=== PATIENT | male | born 1985 | race Caucasian/White ===

== ENCOUNTER 2019-01-10 06:36 | Emergency (ER) | payer BC, OTHER ==
[2019-01-10] MEDS ORDERED: Aspirin 81 MG Tab.Chew PO ONE (07:03)
[2019-01-10] MEDS ORDERED: Sodium Chloride 0.9% 10 ML Syringe FLUSH PRN (07:04)
--- NOTE | 2019-01-10 07:08 | EDM.PDOC ---
<Negro Graff M - Last Filed: 01/10/19 07:02> ED HPI GENERAL MEDICAL PROBLEM - General Chief Complaint: Chest Pain Stated Complaint: chest pain Time Seen by Provider: 01/10/19 06:52 Source of Information: Reports: Patient History Limitations: Reports: No Limitations - History of Present Illness INITIAL COMMENTS - FREE TEXT/NARRATIVE: Patient reports left sided chest pain that goes into the arm. This awoke him at 5 am. He did have some nausea and vomiting. He denies current nausea. 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 He does state the pain is somewhat worse on respiration. States he left work on with chills. Did not take temperature so he is not sure if he was febrile. He denies daily medication use, no allergies. Smokes 1/2 pack per day since 16 yrs of age. Denies headache, shortness of breath. Denies current nausea. No swelling of extremities. Denies other medical history. Onset: Today, Sudden Onset Date: 01/10/19 Onset Time: 05:00 Duration: Improving Location: Reports: Chest, Upper Extremity, Left Quality: Reports: Ache Severity: Moderate Improves with: Reports: None Worsens with: Reports: Breathing Associated Symptoms: Reports: Chest Pain, Diaphoresis, Nausea/Vomiting Left Chest Pain Score (Numeric/FACES): 5 - Related Data Allergies Allergy/AdvReac Type Severity Reaction Status Date / Time No Known Allergies Allergy Verified 01/10/19 06:54 Home Meds: Home Meds . [No Known Home Meds] 01/10/19 [History] Past Medical History Cardiovascular History: Reports: Other (See Below) Other Cardiovascular History: myocarditis Social & Family History - Tobacco Use Smoking Status *Q: Current Every Day Smoker Years of Tobacco use: 15 Packs/Tins Daily: 0.5 ED ROS GENERAL - Review of Systems Review Of Systems: See Below Constitutional: Reports: No Symptoms HEENT: Reports: No Symptoms Respiratory: Reports: No Symptoms Cardiovascular: Reports: Chest Pain Endocrine: Reports: No Symptoms GI/Abdominal: Reports: No Symptoms : Reports: No Symptoms Musculoskeletal: Reports: Arm Pain Skin: Reports: No Symptoms Neurological: Reports: No Symptoms Psychiatric: Reports: No Symptoms Hematologic/Lymphatic: Reports: No Symptoms Immunologic: Reports: No Symptoms ED EXAM, GENERAL - Physical Exam Exam: See Below Exam Limited By: No Limitations General Appearance: Alert, WD/WN, No Apparent Distress Eye Exam: Bilateral Eye: EOMI, Normal Inspection, PERRL Ears: Normal TMs Nose: Normal Inspection, Normal Mucosa, No Blood Throat/Mouth: Normal Inspection, Normal Lips, Normal Teeth, Normal Gums, Normal Oropharynx, Normal Voice, No Airway Compromise Head: Atraumatic, Normocephalic Neck: Normal Inspection, Supple, Non-Tender, Full Range of Motion Respiratory/Chest: No Respiratory Distress, Lungs Clear, Normal Breath Sounds, No Accessory Muscle Use, Chest Non-Tender Cardiovascular: Normal Peripheral Pulses, Regular Rate, Rhythm, No Edema, No Gallop, No JVD, No Murmur, No Rub Peripheral Pulses: 2+: Posterior Tibial (L), Posterior Tibial (R), Dorsalis Pedis (L), Dorsalis Pedis (R) GI/Abdominal: Normal Bowel Sounds, Soft, Non-Tender, No Organomegaly, No Distention, No Abnormal Bruit, No Mass Back Exam: Normal Inspection, Full Range of Motion, NT Extremities: Normal Inspection, Normal Range of Motion, Non-Tender, Normal Capillary Refill, No Pedal Edema Neurological: Alert, Oriented, CN II-XII Intact, Normal Cognition, Normal Gait, Normal Reflexes, No Motor/Sensory Deficits Psychiatric: Normal Affect, Normal Mood Skin Exam: Warm, Dry, Intact, Normal Color, No Rash Lymphatic: No Adenopathy Course - Vital Signs Last Recorded V/S: Last Vital Signs Temp 35.8 C 01/10/19 07:35 Pulse 63 01/10/19 07:35 Resp 11 L 01/10/19 07:35 BP 103/65 01/10/19 07:51 Pulse Ox 98 01/10/19 07:35 - Orders/Labs/Meds Orders: Active Orders 24 hr Category Date Time Status EKG Documentation Completion [RC] STAT Care 01/10/19 06:53 Active CULTURE BLOOD [BC] Stat Lab 01/10/19 07:19 Ordered CULTURE BLOOD [BC] Stat Lab 01/10/19 07:19 Ordered PTT,PARTIAL THROMBOPLSTIN TIME [COAG] Q6H Lab 01/11/19 02:00 Ordered PTT,PARTIAL THROMBOPLSTIN TIME [COAG] Q6H Lab 01/11/19 08:00 Ordered PTT,PARTIAL THROMBOPLSTIN TIME [COAG] Q6H Lab 01/11/19 14:00 Ordered PTT,PARTIAL THROMBOPLSTIN TIME [COAG] Q6H Lab 01/11/19 20:00 Ordered PTT,PARTIAL THROMBOPLSTIN TIME [COAG] Routine Lab 01/10/19 07:55 Ordered UA W/O MICROSCOPIC [URIN] Stat Lab 01/10/19 07:55 Ordered Heparin Sodium/0.45% NaCl [Heparin 25,000 Units in 1/2 Med 01/10/19 08:00 Ordered NS 500 ML] 25,000 units in 500 ml IV TITRATE Nitroglycerin [Nitrostat] Med 01/10/19 07:34 Ordered 0.4 mg SL Q5M PRN Sodium Chloride 0.9% @ 150 MLS/HR (1000ml) Med 01/10/19 08:00 Ordered Sodium Chloride 0.9% [Normal Saline] 1,000 ml IV ASDIRECTED Sodium Chloride 0.9% [Saline Flush] Med 01/10/19 07:04 Active 10 ml FLUSH ASDIRECTED PRN Blood Culture x2 Reflex Set [OM.PC] Stat Oth 01/10/19 07:19 Ordered Saline Lock Insert [OM.PC] Routine Oth 01/10/19 07:04 Ordered Medication Orders Sodium Chloride (Normal Saline) 1,000 mls @ 150 mls/hr IV ASDIRECTED OSCAR Last Admin: 01/10/19 08:09 Dose: 150 mls/hr Heparin Sodium/Sodium Chloride (Heparin 25,000 Units In 1/2 Ns 500 Ml) 25,000 units in 500 mls @ 20 mls/hr IV TITRATE OSCAR; Protocol Last Admin: 01/10/19 08:09 Dose: 1,000 units/hr, 20 mls/hr Nitroglycerin (Nitrostat) 0.4 mg SL Q5M PRN PRN Reason: Chest Pain Last Admin: 01/10/19 07:35 Dose: 0.4 mg Sodium Chloride (Saline Flush) 10 ml FLUSH ASDIRECTED PRN PRN Reason: Keep Vein Open Labs: Laboratory Tests 01/10/19 01/10/19 01/10/19 Range/Units 06:56 06:56 06:56 WBC 7.3 (4.0-10.0) x10^3/uL RBC 4.22 L (4.5-6.0) x10^6/uL Hgb 13.2 L (14.0-18.0) g/dL Hct 38.0 L (40.0-52.0) % MCV 90.0 (78.0-93.0) fL MCH 31.3 (26.0-32.0) pg MCHC 34.7 (32.0-36.0) g/dL RDW Coeff of Yumiko 12.4 (10.0-15.0) % Plt Count 171 (130-400) x10^3/uL Neut % (Auto) 50.8 (50.0-80.0) % Lymph % (Auto) 34.2 (25.0-50.0) % [place] % (Auto) 10.2 (2.0-11.0) % Eos % (Auto) 4.5 H (0.0-4.0) % Baso % (Auto) 0.3 (0.2-1.2) % PT 11.1 (10.0-12.8) SEC INR 1.0 L (2.0-3.5) Sodium 141 (136-145) mmol/L Potassium 3.8 (3.5-5.1) mmol/L Chloride 105 (98-107) mmol/L Carbon Dioxide 25 (21-32) mmol/L Anion Gap 14.8 (10-20) mmol/L BUN 19 H (7-18) mg/dL Creatinine 1.0 (0.70-1.30) mg/dL Est Cr Clr Drug Dosing TNP Estimated GFR (MDRD) > 60 Glucose 130 H (74-106) mg/dL Lactic Acid (0.4-2.0) mmol/L Calcium 8.5 (8.5-10.1) mg/dL Corrected Calcium 8.58 (8.5-10.1) mg/dL Magnesium 2.0 (1.8-2.4) mg/dL Total Bilirubin 0.3 (0.2-1.0) mg/dL AST 27 (15-37) U/L ALT 33 (16-63) U/L Alkaline Phosphatase 76 (46-116) U/L Creatine Kinase 273 (39-308) U/L POC Troponin I (0.00-0.08) ng/mL C-Reactive Protein 1.1 H (<=0.9) mg/dL Total Protein 7.9 (6.4-8.2) g/dL Albumin 3.9 (3.4-5.0) g/dL Globulin 4.0 Albumin/Globulin Ratio 0.98 TSH, Ultra Sensitive 1.144 (0.358-3.74) uIU/mL POC Result Comm 01/10/19 01/10/19 Range/Units 06:56 06:58 WBC (4.0-10.0) x10^3/uL RBC (4.5-6.0) x10^6/uL Hgb (14.0-18.0) g/dL Hct (40.0-52.0) % MCV (78.0-93.0) fL MCH (26.0-32.0) pg MCHC (32.0-36.0) g/dL RDW Coeff of Yumiko (10.0-15.0) % Plt Count (130-400) x10^3/uL Neut % (Auto) (50.0-80.0) % Lymph % (Auto) (25.0-50.0) % [place] % (Auto) (2.0-11.0) % Eos % (Auto) (0.0-4.0) % Baso % (Auto) (0.2-1.2) % PT (10.0-12.8) SEC INR (2.0-3.5) Sodium (136-145) mmol/L Potassium (3.5-5.1) mmol/L Chloride (98-107) mmol/L Carbon Dioxide (21-32) mmol/L Anion Gap (10-20) mmol/L BUN (7-18) mg/dL Creatinine (0.70-1.30) mg/dL Est Cr Clr Drug Dosing Estimated GFR (MDRD) Glucose (74-106) mg/dL Lactic Acid 0.7 (0.4-2.0) mmol/L Calcium (8.5-10.1) mg/dL Corrected Calcium (8.5-10.1) mg/dL Magnesium (1.8-2.4) mg/dL Total Bilirubin (0.2-1.0) mg/dL AST (15-37) U/L ALT (16-63) U/L Alkaline Phosphatase (46-116) U/L Creatine Kinase (39-308) U/L POC Troponin I 1.61 H* (0.00-0.08) ng/mL C-Reactive Protein (<=0.9) mg/dL Total Protein (6.4-8.2) g/dL Albumin (3.4-5.0) g/dL Globulin Albumin/Globulin Ratio TSH, Ultra Sensitive (0.358-3.74) uIU/mL POC Result Comm Called critical res Meds: Medications Generic Name Dose Route Start Last Admin Trade Name Fremargot PRN Reason Stop Dose Admin Sodium Chloride 1,000 mls @ 150 mls/hr 01/10/19 08:00 01/10/19 08:09 Normal Saline IV 150 mls/hr ASDIRECTED OSCAR Administration Heparin Sodium/Sodium Chloride 25,000 units in 500 mls @ 20 mls/hr 01/10/19 08 :00 01/10/19 08:09 Heparin 25,000 Units In 1/2 Ns 500 Ml IV 1,000 units/hr TITRATE OSCAR 20 mls/hr Administration Protocol 1,000 UNITS/HR Nitroglycerin 0.4 mg 01/10/19 07:34 01/10/19 07:51 Nitrostat SL 0.4 mg Q5M PRN Administration Chest Pain Sodium Chloride 10 ml 01/10/19 07:04 Saline Flush FLUSH ASDIRECTED PRN Keep Vein Open Discontinued Medications Generic Name Dose Route Start Last Admin Trade Name Gunjan PRN Reason Stop Dose Admin Aspirin 324 mg 01/10/19 07:03 01/10/19 07:05 Aspirin PO 01/10/19 07:04 324 mg ONETIME ONE Administration Heparin Sodium (Porcine) 4,000 units 01/10/19 07:54 01/10/19 08:08 Heparin Sodium IVPUSH 01/10/19 07:55 4,000 units .BOLUS ONE Administration Ticagrelor 180 mg 01/10/19 07:57 01/10/19 08:19 Brilinta PO 01/10/19 07:58 180 mg ONETIME ONE Administration Departure - Departure Disposition: DC/Tfer to [facility] 02 Clinical Impression: Acute coronary syndrome Instructions: Acute Coronary Syndrome Forms: Interfacility Transfer EMTALA, ED Department Discharge - My Orders Last 24 Hours: My Active Orders 01/10/19 07:34 Nitroglycerin [Nitrostat] 0.4 mg SL Q5M PRN 01/10/19 07:55 PTT,PARTIAL THROMBOPLSTIN TIME [COAG] Routine UA W/O MICROSCOPIC [URIN] Stat 01/10/19 08:00 Heparin Sodium/0.45% NaCl [Heparin 25,000 Units in 1/2 NS 500 ML] 25,000 units in 500 ml IV TITRATE Sodium Chloride 0.9% @ 150 MLS/HR (1000ml) Sodium Chloride 0.9% [Normal Saline] 1,000 ml IV ASDIRECTED 01/11/19 02:00 PTT,PARTIAL THROMBOPLSTIN TIME [COAG] Q6H 01/11/19 08:00 PTT,PARTIAL THROMBOPLSTIN TIME [COAG] Q6H 01/11/19 14:00 PTT,PARTIAL THROMBOPLSTIN TIME [COAG] Q6H 01/11/19 20:00 PTT,PARTIAL THROMBOPLSTIN TIME [COAG] Q6H - Assessment/Plan Last 24 Hours: My Active Orders 01/10/19 07:34 Nitroglycerin [Nitrostat] 0.4 mg SL Q5M PRN 01/10/19 07:55 PTT,PARTIAL THROMBOPLSTIN TIME [COAG] Routine UA W/O MICROSCOPIC [URIN] Stat 01/10/19 08:00 Heparin Sodium/0.45% NaCl [Heparin 25,000 Units in 1/2 NS 500 ML] 25,000 units in 500 ml IV TITRATE Sodium Chloride 0.9% @ 150 MLS/HR (1000ml) Sodium Chloride 0.9% [Normal Saline] 1,000 ml IV ASDIRECTED 01/11/19 02:00 PTT,PARTIAL THROMBOPLSTIN TIME [COAG] Q6H 01/11/19 08:00 PTT,PARTIAL THROMBOPLSTIN TIME [COAG] Q6H 01/11/19 14:00 PTT,PARTIAL THROMBOPLSTIN TIME [COAG] Q6H 01/11/19 20:00 PTT,PARTIAL THROMBOPLSTIN TIME [COAG] Q6H <Hafsa Jin - Last Filed: 01/10/19 08:31> ED HPI GENERAL MEDICAL PROBLEM - General Source of Information: Reports: Patient History Limitations: Reports: No Limitations - History of Present Illness INITIAL COMMENTS - FREE TEXT/NARRATIVE: Assumed care of the patient from Negro Green, ASSOCIATE PROFESSOR. Labs pending. Past Medical History Cardiovascular History: Reports: Other (See Below) ED ROS GENERAL - Review of Systems Review Of Systems: See Below Constitutional: Reports: No Symptoms HEENT: Reports: No Symptoms Respiratory: Reports: No Symptoms Cardiovascular: Reports: Chest Pain Endocrine: Reports: No Symptoms GI/Abdominal: Reports: No Symptoms : Reports: No Symptoms Musculoskeletal: Reports: Arm Pain Skin: Reports: No Symptoms Neurological: Reports: No Symptoms Psychiatric: Reports: No Symptoms Hematologic/Lymphatic: Reports: No Symptoms Immunologic: Reports: No Symptoms ED EXAM, GENERAL - Physical Exam Exam: See Below Exam Limited By: No Limitations General Appearance: Alert, WD/WN, No Apparent Distress Ears: Normal TMs Nose: Normal Inspection, Normal Mucosa, No Blood Throat/Mouth: Normal Inspection, Normal Lips, Normal Teeth, Normal Gums, Normal Oropharynx, Normal Voice, No Airway Compromise Head: Atraumatic, Normocephalic Neck: Normal Inspection, Supple, Non-Tender, Full Range of Motion Respiratory/Chest: No Respiratory Distress, Lungs Clear, Normal Breath Sounds, No Accessory Muscle Use, Chest Non-Tender Cardiovascular: Normal Peripheral Pulses, Regular Rate, Rhythm, No Edema, No Gallop, No JVD, No Murmur, No Rub GI/Abdominal: Normal Bowel Sounds, Soft, Non-Tender, No Organomegaly, No Distention, No Abnormal Bruit, No Mass Back Exam: Normal Inspection, Full Range of Motion Extremities: Normal Inspection, Normal Range of Motion, Non-Tender, No Pedal Edema, Normal Capillary Refill Neurological: Alert, Oriented, CN II-XII Intact, Normal Cognition, Normal Gait, Normal Reflexes, No Motor/Sensory Deficits Psychiatric: Normal Affect, Normal Mood Skin Exam: Warm, Dry, Intact, Normal Color, No Rash Lymphatic: No Adenopathy EKG INTERPRETATION EKG Date: 01/10/19 Course - Vital Signs Text/Narrative:: 0715 Assumed care of patient, report received from Negro Graff CNP. Patient reassessed by this ASSOCIATE PROFESSOR. Patient reporting 2/10 chest pain. EKG reviewed and noted ST elevation in V4 and V5. Nitro ordered. 0735 Labs reviewed. Note Troponin=1.61. [place] contacted in [place] and case presented. 0750 Director Dance, Dr Mead returned call to ER. Will start Heparin gtt and Brilinta 180mg po and transport patient. Still having 1-2/10 left sided chest pain. Will given Morphine 2 mg for the pain. Awaiting accepting Hospitalist. 08 [facility] returned call and Dr Arellano-Hospitalist given patient report. 08 Patient to be admitted to [id number]. Patient remained stable until leaving with ALS ground crew for [place]. - Orders/Labs/Meds Labs: Laboratory Tests 01/10/19 01/10/19 01/10/19 Range/Units 06:56 06:56 06:56 WBC 7.3 (4.0-10.0) x10^3/uL RBC 4.22 L (4.5-6.0) x10^6/uL Hgb 13.2 L (14.0-18.0) g/dL Hct 38.0 L (40.0-52.0) % MCV 90.0 (78.0-93.0) fL MCH 31.3 (26.0-32.0) pg MCHC 34.7 (32.0-36.0) g/dL RDW Coeff of Yumiko 12.4 (10.0-15.0) % Plt Count 171 (130-400) x10^3/uL Neut % (Auto) 50.8 (50.0-80.0) % Lymph % (Auto) 34.2 (25.0-50.0) % [place] % (Auto) 10.2 (2.0-11.0) % Eos % (Auto) 4.5 H (0.0-4.0) % Baso % (Auto) 0.3 (0.2-1.2) % PT 11.1 (10.0-12.8) SEC INR 1.0 L (2.0-3.5) Sodium 141 (136-145) mmol/L Potassium 3.8 (3.5-5.1) mmol/L Chloride 105 (98-107) mmol/L Carbon Dioxide 25 (21-32) mmol/L Anion Gap 14.8 (10-20) mmol/L BUN 19 H (7-18) mg/dL Creatinine 1.0 (0.70-1.30) mg/dL Est Cr Clr Drug Dosing TNP Estimated GFR (MDRD) > 60 Glucose 130 H (74-106) mg/dL Lactic Acid (0.4-2.0) mmol/L Calcium 8.5 (8.5-10.1) mg/dL Corrected Calcium 8.58 (8.5-10.1) mg/dL Magnesium 2.0 (1.8-2.4) mg/dL Total Bilirubin 0.3 (0.2-1.0) mg/dL AST 27 (15-37) U/L ALT 33 (16-63) U/L Alkaline Phosphatase 76 (46-116) U/L Creatine Kinase 273 (39-308) U/L POC Troponin I (0.00-0.08) ng/mL C-Reactive Protein 1.1 H (<=0.9) mg/dL Total Protein 7.9 (6.4-8.2) g/dL Albumin 3.9 (3.4-5.0) g/dL Globulin 4.0 Albumin/Globulin Ratio 0.98 TSH, Ultra Sensitive 1.144 (0.358-3.74) uIU/mL POC Result Comm 01/10/19 01/10/19 Range/Units 06:56 06:58 WBC (4.0-10.0) x10^3/uL RBC (4.5-6.0) x10^6/uL Hgb (14.0-18.0) g/dL Hct (40.0-52.0) % MCV (78.0-93.0) fL MCH (26.0-32.0) pg MCHC (32.0-36.0) g/dL RDW Coeff of Yumiko (10.0-15.0) % Plt Count (130-400) x10^3/uL Neut % (Auto) (50.0-80.0) % Lymph % (Auto) (25.0-50.0) % [place] % (Auto) (2.0-11.0) % Eos % (Auto) (0.0-4.0) % Baso % (Auto) (0.2-1.2) % PT (10.0-12.8) SEC INR (2.0-3.5) Sodium (136-145) mmol/L Potassium (3.5-5.1) mmol/L Chloride (98-107) mmol/L Carbon Dioxide (21-32) mmol/L Anion Gap (10-20) mmol/L BUN (7-18) mg/dL Creatinine (0.70-1.30) mg/dL Est Cr Clr Drug Dosing Estimated GFR (MDRD) Glucose (74-106) mg/dL Lactic Acid 0.7 (0.4-2.0) mmol/L Calcium (8.5-10.1) mg/dL Corrected Calcium (8.5-10.1) mg/dL Magnesium (1.8-2.4) mg/dL Total Bilirubin (0.2-1.0) mg/dL AST (15-37) U/L ALT (16-63) U/L Alkaline Phosphatase (46-116) U/L Creatine Kinase (39-308) U/L POC Troponin I 1.61 H* (0.00-0.08) ng/mL C-Reactive Protein (<=0.9) mg/dL Total Protein (6.4-8.2) g/dL Albumin (3.4-5.0) g/dL Globulin Albumin/Globulin Ratio TSH, Ultra Sensitive (0.358-3.74) uIU/mL POC Result Comm Called critical res Laboratory Results - last 24 hr 01/10/19 01/10/19 01/10/19 Range/Units 06:56 06:56 06:56 WBC 7.3 (4.0-10.0) x10^3/uL RBC 4.22 L (4.5-6.0) x10^6/uL Hgb 13.2 L (14.0-18.0) g/dL Hct 38.0 L (40.0-52.0) % MCV 90.0 (78.0-93.0) fL MCH 31.3 (26.0-32.0) pg MCHC 34.7 (32.0-36.0) g/dL RDW Coeff of Yumiko 12.4 (10.0-15.0) % Plt Count 171 (130-400) x10^3/uL Neut % (Auto) 50.8 (50.0-80.0) % Lymph % (Auto) 34.2 (25.0-50.0) % [place] % (Auto) 10.2 (2.0-11.0) % Eos % (Auto) 4.5 H (0.0-4.0) % Baso % (Auto) 0.3 (0.2-1.2) % PT 11.1 (10.0-12.8) SEC INR 1.0 L (2.0-3.5) Sodium 141 (136-145) mmol/L Potassium 3.8 (3.5-5.1) mmol/L Chloride 105 (98-107) mmol/L Carbon Dioxide 25 (21-32) mmol/L Anion Gap 14.8 (10-20) mmol/L BUN 19 H (7-18) mg/dL Creatinine 1.0 (0.70-1.30) mg/dL Est Cr Clr Drug Dosing TNP Estimated GFR (MDRD) > 60 Glucose 130 H (74-106) mg/dL Lactic Acid (0.4-2.0) mmol/L Calcium 8.5 (8.5-10.1) mg/dL Corrected Calcium 8.58 (8.5-10.1) mg/dL Magnesium 2.0 (1.8-2.4) mg/dL Total Bilirubin 0.3 (0.2-1.0) mg/dL AST 27 (15-37) U/L ALT 33 (16-63) U/L Alkaline Phosphatase 76 (46-116) U/L Creatine Kinase 273 (39-308) U/L POC Troponin I (0.00-0.08) ng/mL C-Reactive Protein 1.1 H (<=0.9) mg/dL Total Protein 7.9 (6.4-8.2) g/dL Albumin 3.9 (3.4-5.0) g/dL Globulin 4.0 Albumin/Globulin Ratio 0.98 TSH, Ultra Sensitive 1.144 (0.358-3.74) uIU/mL POC Result Comm 01/10/19 01/10/19 Range/Units 06:56 06:58 WBC (4.0-10.0) x10^3/uL RBC (4.5-6.0) x10^6/uL Hgb (14.0-18.0) g/dL Hct (40.0-52.0) % MCV (78.0-93.0) fL MCH (26.0-32.0) pg MCHC (32.0-36.0) g/dL RDW Coeff of Yumiko (10.0-15.0) % Plt Count (130-400) x10^3/uL Neut % (Auto) (50.0-80.0) % Lymph % (Auto) (25.0-50.0) % [place] % (Auto) (2.0-11.0) % Eos % (Auto) (0.0-4.0) % Baso % (Auto) (0.2-1.2) % PT (10.0-12.8) SEC INR (2.0-3.5) Sodium (136-145) mmol/L Potassium (3.5-5.1) mmol/L Chloride (98-107) mmol/L Carbon Dioxide (21-32) mmol/L Anion Gap (10-20) mmol/L BUN (7-18) mg/dL Creatinine (0.70-1.30) mg/dL Est Cr Clr Drug Dosing Estimated GFR (MDRD) Glucose (74-106) mg/dL Lactic Acid 0.7 (0.4-2.0) mmol/L Calcium (8.5-10.1) mg/dL Corrected Calcium (8.5-10.1) mg/dL Magnesium (1.8-2.4) mg/dL Total Bilirubin (0.2-1.0) mg/dL AST (15-37) U/L ALT (16-63) U/L Alkaline Phosphatase (46-116) U/L Creatine Kinase (39-308) U/L POC Troponin I 1.61 H* (0.00-0.08) ng/mL C-Reactive Protein (<=0.9) mg/dL Total Protein (6.4-8.2) g/dL Albumin (3.4-5.0) g/dL Globulin Albumin/Globulin Ratio TSH, Ultra Sensitive (0.358-3.74) uIU/mL POC Result Comm Called critical res Departure - Departure Time of Disposition: 08:10 Reason for Transfer *Q: Primary PCI Indicated Condition: Good - Assessment/Plan Admission H&P: Please use this note as an admission H&P Assessment:: 1)Acute Coronary Syndrome 2)Hx Tobacco Use Plan: -Transfer to [facility] via ground ambulance
[2019-01-10] MEDS: Nitroglycerin 0.4 MG Tab.SL SL PRN ×2 (07:35→07:51)
[2019-01-10 07:47] LABS: ANION GAP 14.8 mmol/L (10-20); CHLORIDE,CL 105 mmol/L (98-107); SODIUM,NA 141 mmol/L (136-145)
[2019-01-10] MEDS ORDERED: Heparin Sodium 5,000 Units/ML Vial IVPUSH ONE (07:54)
[2019-01-10] MEDS ORDERED: Ticagrelor 90 MG Tab PO ONE (07:57)
[2019-01-10] MEDS ORDERED: Heparin Sodium/0.45% NaCl 25,000 UNITS/500 ML BAG IV SCH (08:00)
[2019-01-10] MEDS ORDERED: Sodium Chloride 0.9% 1,000 ML IV SCH (08:00)
--- NOTE | 2019-01-10 08:19 | CR ---
[id number] RAD/RAD Chest PA or AP 1V EXAM: SINGLE VIEW CHEST. INDICATION: CHEST PAIN COMPARISON: NO PREVIOUS SIMILAR EXAM IS AVAILABLE FINDINGS: The lungs are clear The cardiomediastinal contour is within normal limits IMPRESSION: NO ACUTE PROCESS Nael Long MD 01/10/19 0818 Thank you for allowing us to participate in the care of your patient.
== END 2019-01-10 08:48 | disposition short-term general hospital (02) ==
LOC: VM.ED 06:36
DX: I24.9 Acute ischemic heart disease, unspecified (principal); F17.210 Nicotine dependence, cigarettes, uncomplicated
CPT/HCPCS: 36415; 71045; 80053; 82550; 83605; 83735; 84443; 84484; 85025; 85610; 85730; 86140; 87040; 93005; 96365; 96376; 99285-25; A9270-GY; J1644; J7030